=== PATIENT | female | born 1980 | race African-American/Black ===

== ENCOUNTER 2023-02-13 13:45 | Inpatient (IN) | payer OTHER ==
[2023-02-13 14:24] VITALS: BMI 18.1
[2023-02-13] MEDS ORDERED: MAG HYDROX/AL HYDROX/SIMETH 30 ML UNIT-DOSE CUP PO PRN (16:21)
[2023-02-13] MEDS ORDERED: NALOXONE HCL (KLOXXADO) 8 MG SPRAY NS PRN (16:21)
[2023-02-13] MEDS ORDERED: POLYETHYLENE GLYCOL (HEALTHYLAX) 3350 17 GM PACKET PO PRN (16:21)
[2023-02-13] MEDS ORDERED: NALOXONE HCL 0.4 MG/ML VIAL IM PRN (16:21)
[2023-02-13] MEDS ORDERED: LOPERAMIDE HCL 2 MG CAPSULE PO PRN (16:21)
[2023-02-13] MEDS ORDERED: BENZOCAINE/MENTHOL (CHLORASEPTIC ) LOZENGE MM PRN (16:21)
[2023-02-13] MEDS ORDERED: MAGNESIUM HYDROX 2400MG/30ML ORAL SUSPENSION 30 ML CUP PO PRN (16:21)
[2023-02-13] MEDS ORDERED: ACETAMINOPHEN 325 MG TABLET (FP) PO PRN (16:21)
[2023-02-13] MEDS ORDERED: guaiFENesin 600 MG TABLET.ER (FP) PO PRN (16:21)
[2023-02-13] MEDS ORDERED: BENZONATATE 200 MG CAPSULE PO PRN (16:21)
[2023-02-13] MEDS ORDERED: TUBERCULIN PPD 5 TU/0.1ML SYRINGE (IN PATIENT USE ONLY) ID ONE (20:00)
[2023-02-13] MEDS: PRENATAL VITAMINS W/ FOLIC ACID TABLET (FP) PO SCH (20:02)
[2023-02-13] MEDS: THIAMINE HCL 100 MG TABLET (FP) PO SCH (21:01)
[2023-02-13] MEDS: IBUPROFEN 600 MG TABLET (FP) PO PRN (21:03)
[2023-02-13] MEDS ORDERED: MELATONIN 5 MG TABLETS PO SCH (22:00)
[2023-02-14] MEDS: PRENATAL VITAMINS W/ FOLIC ACID TABLET (FP) PO SCH (09:59)
[2023-02-14] MEDS: IBUPROFEN 400 MG TABLET (FP) PO PRN (10:01)
[2023-02-14] MEDS ORDERED: OXYBUTYNIN CHLORIDE 5 MG TABLET PO SCH ×2 (11:30→11:33)
[2023-02-14 11:34] LABS: HEMOGLOBIN 11.6 GM/dL (10.7-15.3); MCH 30.1 pg (25.7-33.7); MCHC 33.2 g/dl (32.0-36.0); MEAN CELL VOLUME 90.6 fl (80-96); MEAN PLT VOLUME 8.7 fl (7.5-11.1); PLATELET COUNT 303 10^3/uL (134-434); RBC 3.86 M/mm3 (3.60-5.2); RDW 18.7 % (11.6-15.6); WHITE BLOOD COUNT 4.5 K/mm3 (4.0-10.0)
[2023-02-14 12:13] LABS: CALCIUM 9.8 mg/dL (8.5-10.1)
[2023-02-14 12:14] LABS: ALBUMIN 4.2 g/dl (3.4-5.0); BLOOD UREA NITROGEN 9.6 mg/dL (7-18)
[2023-02-14 12:15] LABS: SYPHILIS W/ RPR CONF NON-REACTIVE (NONREACTIVE)
[2023-02-14 12:16] LABS: CREATININE 0.8 mg/dL (0.55-1.3)
[2023-02-14 12:18] LABS: BILIRUBIN,TOTAL 1.2 mg/dL (0.2-1); TOT PROT 7.8 g/dl (6.4-8.2)
[2023-02-14] MEDS: MONTELUKAST NA 10 MG TABLET PO SCH (12:20)
[2023-02-14] MEDS: metoPROLOL SUCCINATE 25 MG TAB.SR.24H (FP) PO SCH (12:20)
[2023-02-14] MEDS: OXYBUTYNIN CHLORIDE 5 MG TABLET PO SCH ×3 (13:56→21:57)
[2023-02-14 16:22] LABS: URINE APPEARANCE CLOUDY; URINE BILIRUBIN NEGATIVE (NEGATIVE); URINE COLOR DK YELLOW; URINE GLUCOSE (UA) NEGATIVE (NEGATIVE); URINE KETONE TRACE (NEGATIVE); URINE LEUK ESTERASE NEGATIVE (NEGATIVE); URINE NITRITE NEGATIVE (NEGATIVE); URINE PROTEIN TRACE (NEGATIVE)
[2023-02-14] MEDS: SUVOREXANT 10 MG TABLET PO PRN (21:57)
[2023-02-14] MEDS: OLANZapine 5 MG TABLET PO SCH (21:57)
[2023-02-14] MEDS: THIAMINE HCL 100 MG TABLET (FP) PO SCH (21:57)
[2023-02-14] MEDS ORDERED: QUEtiapine FUMARATE 50 MG TABLET PO SCH (22:00)
[2023-02-15] MEDS: OXYBUTYNIN CHLORIDE 5 MG TABLET PO SCH ×5 (10:32→21:19)
[2023-02-15] MEDS: PRENATAL VITAMINS W/ FOLIC ACID TABLET (FP) PO SCH ×2 (10:32→10:42)
[2023-02-15] MEDS: MONTELUKAST NA 10 MG TABLET PO SCH (10:33)
[2023-02-15] MEDS: metoPROLOL SUCCINATE 25 MG TAB.SR.24H (FP) PO SCH ×2 (10:33→10:43)
[2023-02-15] MEDS: SUVOREXANT 10 MG TABLET PO PRN (21:18)
[2023-02-15] MEDS: THIAMINE HCL 100 MG TABLET (FP) PO SCH (21:19)
[2023-02-15] MEDS: OLANZapine 5 MG TABLET PO SCH (21:19)
[2023-02-16] MEDS: PRENATAL VITAMINS W/ FOLIC ACID TABLET (FP) PO SCH (10:15)
[2023-02-16] MEDS: MONTELUKAST NA 10 MG TABLET PO SCH (10:15)
[2023-02-16] MEDS: metoPROLOL SUCCINATE 25 MG TAB.SR.24H (FP) PO SCH (10:15)
[2023-02-16] MEDS: OXYBUTYNIN CHLORIDE 5 MG TABLET PO SCH ×4 (10:16→21:40)
[2023-02-16] MEDS: IBUPROFEN 400 MG TABLET (FP) PO PRN (10:39)
[2023-02-16] MEDS: THIAMINE HCL 100 MG TABLET (FP) PO SCH (21:40)
[2023-02-16] MEDS: OLANZapine 5 MG TABLET PO SCH (21:40)
[2023-02-16] MEDS: SUVOREXANT 10 MG TABLET PO PRN (21:41)
[2023-02-17] MEDS: OXYBUTYNIN CHLORIDE 5 MG TABLET PO SCH ×4 (10:11→21:25)
[2023-02-17] MEDS: metoPROLOL SUCCINATE 25 MG TAB.SR.24H (FP) PO SCH (10:11)
[2023-02-17] MEDS: PRENATAL VITAMINS W/ FOLIC ACID TABLET (FP) PO SCH (10:11)
[2023-02-17] MEDS: MONTELUKAST NA 10 MG TABLET PO SCH (10:11)
[2023-02-17] MEDS: hydrOXYzine PAMOATE 25 MG CAPSULE (FP) PO PRN (10:14)
[2023-02-17] MEDS: IBUPROFEN 400 MG TABLET (FP) PO PRN (10:15)
[2023-02-17] MEDS: THIAMINE HCL 100 MG TABLET (FP) PO SCH (21:25)
[2023-02-17] MEDS: OLANZapine 5 MG TABLET PO SCH (21:25)
[2023-02-17] MEDS: SUVOREXANT 10 MG TABLET PO PRN (21:26)
[2023-02-18] MEDS: IBUPROFEN 400 MG TABLET (FP) PO PRN (10:14)
[2023-02-18] MEDS: MONTELUKAST NA 10 MG TABLET PO SCH (10:14)
[2023-02-18] MEDS: metoPROLOL SUCCINATE 25 MG TAB.SR.24H (FP) PO SCH (10:14)
[2023-02-18] MEDS: PRENATAL VITAMINS W/ FOLIC ACID TABLET (FP) PO SCH (10:15)
[2023-02-18] MEDS: OXYBUTYNIN CHLORIDE 5 MG TABLET PO SCH ×3 (10:15→21:31)
[2023-02-18] MEDS ORDERED: POTASSIUM CHLORIDE TABS 20 MEQ TABLET.ER (FP) PO SCH (10:30)
[2023-02-18] MEDS: hydrOXYzine PAMOATE 25 MG CAPSULE (FP) PO PRN (21:31)
[2023-02-18] MEDS: OLANZapine 5 MG TABLET PO SCH (21:31)
[2023-02-18] MEDS: THIAMINE HCL 100 MG TABLET (FP) PO SCH (21:31)
[2023-02-18] MEDS ORDERED: POTASSIUM CHLORIDE ORAL LIQUID 20 MEQ/15 ML PO ONE (22:00)
[2023-02-19] MEDS: IBUPROFEN 400 MG TABLET (FP) PO PRN (06:47)
[2023-02-19] MEDS: PRENATAL VITAMINS W/ FOLIC ACID TABLET (FP) PO SCH (10:28)
[2023-02-19] MEDS: MONTELUKAST NA 10 MG TABLET PO SCH (10:29)
[2023-02-19] MEDS: metoPROLOL SUCCINATE 25 MG TAB.SR.24H (FP) PO SCH (10:29)
[2023-02-19] MEDS: OXYBUTYNIN CHLORIDE 5 MG TABLET PO SCH ×4 (10:30→21:36)
[2023-02-19 12:08] LABS: ALBUMIN 4.1 g/dl (3.4-5.0); CALCIUM 9.7 mg/dL (8.5-10.1)
[2023-02-19 12:10] LABS: CREATININE 0.7 mg/dL (0.55-1.3)
[2023-02-19 12:12] LABS: BILIRUBIN,TOTAL 0.3 mg/dL (0.2-1); TOT PROT 7.4 g/dl (6.4-8.2)
[2023-02-19] MEDS: THIAMINE HCL 100 MG TABLET (FP) PO SCH (21:38)
[2023-02-19] MEDS: OLANZapine 5 MG TABLET PO SCH (21:38)
[2023-02-19] MEDS: hydrOXYzine PAMOATE 25 MG CAPSULE (FP) PO PRN (21:38)
[2023-02-19] MEDS: IBUPROFEN 600 MG TABLET (FP) PO PRN (21:39)
[2023-02-20] MEDS: PRENATAL VITAMINS W/ FOLIC ACID TABLET (FP) PO SCH (10:11)
[2023-02-20] MEDS: MONTELUKAST NA 10 MG TABLET PO SCH (10:12)
[2023-02-20] MEDS: metoPROLOL SUCCINATE 25 MG TAB.SR.24H (FP) PO SCH (10:12)
[2023-02-20] MEDS: IBUPROFEN 600 MG TABLET (FP) PO PRN (10:13)
[2023-02-20] MEDS: THIAMINE HCL 100 MG TABLET (FP) PO SCH (21:23)
[2023-02-20] MEDS: OLANZapine 5 MG TABLET PO SCH (21:23)
[2023-02-20] MEDS: IBUPROFEN 400 MG TABLET (FP) PO PRN (21:26)
[2023-02-20] MEDS ORDERED: PATIENT'S OWN MEDICATION (NON-FORMULARY) (Oxybutynin Chloride [Oxybutynin Chloride Er] 15 PO SCH (22:00)
[2023-02-21 07:23] VITALS: BP 120/68; PULSE 96; RESP 16; TEMP 97.6
[2023-02-21] MEDS: metoPROLOL SUCCINATE 25 MG TAB.SR.24H (FP) PO SCH (10:19)
[2023-02-21] MEDS: MONTELUKAST NA 10 MG TABLET PO SCH (10:19)
[2023-02-21] MEDS: PRENATAL VITAMINS W/ FOLIC ACID TABLET (FP) PO SCH (10:20)
== END 2023-02-21 10:50 | disposition home or self-care (01) | DRG 895 ==
LOC: YASAS 13:45 → Y5N 19:14
PROVIDERS: ADMIT Allergy & Immunology; ATTEND Psychiatry & Neurology Pain Medicine
PROC: HZ42ZZZ Group Counseling for Substance Abuse Treatment, Cognitive-Behavioral (ICD-10-PCS; principal; 2023-02-13)
DX: F10.20 Alcohol dependence, uncomplicated (principal); F19.282 Other psychoactive substance dependence with psychoactive substance-induced sleep disorder; F12.20 Cannabis dependence, uncomplicated; F31.9 Bipolar disorder, unspecified; F43.10 Post-traumatic stress disorder, unspecified; E78.5 Hyperlipidemia, unspecified; G35 Multiple sclerosis; E87.6 Hypokalemia; Z86.79 Personal history of other diseases of the circulatory system; Z95.810 Presence of automatic (implantable) cardiac defibrillator; Z91.410 Personal history of adult physical and sexual abuse
CPT/HCPCS: 36415; 80053; 81003; 81025; 85027; 86780; 86803; 93005; 93010; C9803-CS; U0003; U0005

== ENCOUNTER 2024-08-02 15:35 | Inpatient (IN) | payer OTHER ==
[2024-08-02 16:49] VITALS: BMI 19.5
[2024-08-02] MEDS ORDERED: guaiFENesin 600 MG TABLET.ER (FP) PO PRN (17:43)
[2024-08-02] MEDS ORDERED: IBUPROFEN 400 MG TABLET (FP) PO PRN (17:43)
[2024-08-02] MEDS ORDERED: MAG HYDROX/AL HYDROX/SIMETH 30 ML UNIT-DOSE CUP PO PRN (17:43)
[2024-08-02] MEDS ORDERED: POLYETHYLENE GLYCOL (HEALTHYLAX) 3350 17 GM PACKET PO PRN (17:43)
[2024-08-02] MEDS ORDERED: NALOXONE HCL 0.4 MG/ML VIAL IM PRN (17:43)
[2024-08-02] MEDS ORDERED: NALOXONE (NARCAN) HCL 4 MG/0.1 ML SPRAY NS PRN (17:43)
[2024-08-02] MEDS ORDERED: ONDANSETRON *ODT* 4 MG TABLET SL PRN (17:43)
[2024-08-02] MEDS ORDERED: ACETAMINOPHEN 325 MG TABLET (FP) PO PRN (17:43)
[2024-08-02] MEDS ORDERED: BISMUTH SUBSALICYLATE 524 MG/30 ML PO PRN (17:43)
[2024-08-02] MEDS ORDERED: MAGNESIUM HYDROX 2400MG/30ML ORAL SUSPENSION 30 ML CUP PO PRN (17:43)
[2024-08-02] MEDS ORDERED: hydrOXYzine PAMOATE 25 MG CAPSULE (FP) PO PRN (17:43)
[2024-08-02] MEDS ORDERED: LOPERAMIDE HCL 2 MG CAPSULE PO PRN (17:43)
[2024-08-02] MEDS ORDERED: BENZOCAINE/MENTHOL (CHLORASEPTIC ) LOZENGE MM PRN (17:43)
[2024-08-02] MEDS ORDERED: IBUPROFEN 600 MG TABLET (FP) PO PRN (17:43)
[2024-08-02] MEDS ORDERED: DICYCLOMINE HCL 10 MG CAPSULE PO PRN (17:43)
[2024-08-02] MEDS ORDERED: BENZONATATE 200 MG CAPSULE PO PRN (17:43)
[2024-08-02] MEDS: MELATONIN 5 MG TABLETS PO SCH (21:13)
[2024-08-02] MEDS: THIAMINE 100 MG TABLET PO SCH (21:13)
[2024-08-02] MEDS: PATIENT'S OWN MEDICATION (NON-FORMULARY) (Oxybutynin Chloride [Oxybutynin Chloride Er] 15 PO SCH (21:13)
[2024-08-03] MEDS: PRENATAL VITAMINS W/ FOLIC ACID TABLET (FP) PO SCH (09:22)
[2024-08-03] MEDS: metoPROLOL SUCCINATE 25 MG TAB.SR.24H (FP) PO SCH (09:22)
[2024-08-03 13:53] LABS: HEMATOCRIT 35.5 % (32.4-45.2); HEMOGLOBIN 11.9 GM/dL (10.7-15.3); MCH 31.2 pg (25.7-33.7); MCHC 33.4 g/dl (32.0-36.0); MEAN CELL VOLUME 93.2 fl (80-96); PLATELET COUNT 268 10^3/uL (134-434); RBC 3.81 M/mm3 (3.60-5.2); RDW 17.3 % (11.6-15.6); WHITE BLOOD COUNT 4.4 K/mm3 (4.0-10.0)
[2024-08-03 15:19] LABS: CHLORIDE 102 mmol/L (98-107); POTASSIUM 3.9 mmol/L (3.5-5.1); SODIUM 139 mmol/L (136-145)
[2024-08-03 15:23] LABS: ALBUMIN 3.9 g/dl (3.4-5.0); CALCIUM 9.4 mg/dL (8.5-10.1); GLUCOSE,RANDOM 86 mg/dL (74-106)
[2024-08-03 15:24] LABS: ANION GAP 8 mmol/L (4-13); BLOOD UREA NITROGEN 10.3 mg/dL (7-18); CO2 29 mmol/L (21-32); CREATININE 0.7 mg/dL (0.55-1.3); SGPT/ALT 60 U/L (13-61)
[2024-08-03 15:26] LABS: BILIRUBIN,TOTAL 0.8 mg/dL (0.2-1); TOT PROT 7.5 g/dl (6.4-8.2)
[2024-08-03 15:27] LABS: ALK PHOS 61 U/L (45-117); SGOT/AST 74 U/L (15-37)
[2024-08-03] MEDS: METHOCARBAMOL 500 MG TABLET PO PRN (21:27)
[2024-08-04 09:07] VITALS: BP 123/70; PULSE 67; RESP 16; TEMP 98
[2024-08-04] MEDS ORDERED: DULoxetine HCL 20 MG CAPSULE.DR PO SCH (10:00)
[2024-08-04] MEDS: DULoxetine HCL 20 MG CAPSULE.DR PO SCH (10:39)
[2024-08-04] MEDS: OXYBUTYNIN CHLORIDE 15 MG PO SCH (11:20)
== END 2024-08-04 14:16 | disposition home or self-care (01) | DRG 897 ==
LOC: YASAS 15:35 → Y3N 17:55
PROVIDERS: ADMIT Allergy & Immunology; ATTEND Surgery
PROC: HZ2ZZZZ Detoxification Services for Substance Abuse Treatment (ICD-10-PCS; principal; 2024-08-02)
DX: F10.20 Alcohol dependence, uncomplicated (principal); F12.10 Cannabis abuse, uncomplicated; F31.9 Bipolar disorder, unspecified; F41.9 Anxiety disorder, unspecified; E78.5 Hyperlipidemia, unspecified; I10 Essential (primary) hypertension; G47.00 Insomnia, unspecified; Z86.59 Personal history of other mental and behavioral disorders
CPT/HCPCS: 36415; 80053; 80305; 80307; 81025; 85027; 86780; 93005; 93010